=== PATIENT | female | born 1960 | race Caucasian/White ===

== ENCOUNTER 2016-06-01 15:39 | Outpatient (CLI) | payer OTHER | END 2016-06-01 15:40 | disposition home or self-care (01) | DX: J44.9 Chronic obstructive pulmonary disease, unspecified (principal) ==

== ENCOUNTER 2016-06-28 09:04 | Outpatient (CLI) | payer OTHER | END 2016-06-28 09:05 | disposition home or self-care (01) | DX: E55.9 Vitamin D deficiency, unspecified (principal); E78.5 Hyperlipidemia, unspecified ==

== ENCOUNTER 2016-09-20 13:13 | Outpatient (CLI) | payer OTHER ==
--- NOTE | 2016-09-21 16:11 | DEXA Report ---
DEXA: 09/20/2016 CLINICAL INDICATION: Postmenopausal. TECHNIQUE: Dual energy x-ray absorptiometry (DXA) was performed on a [employer] system. Regions measured are the AP spine, femoral neck, and, if needed, forearm. COMPARISON: None. In accordance with the International Society for Clinical Densitometry (ISCD) guidelines, data from previous exams may be reanalyzed using current recommendations and techniques. This is done to allow a more accurate basis for comparison with the current study. FINDINGS: The data for the lumbar spine is as follows: REGION BMD (g/cm/cm) T-SCORE Z-SCORE L1 0.784 -2.9 -1.5 L2 0.932 -2.2 -0.8 L3 0.938 -2.2 -0.8 L4 0.939 -2.2 -0.8 TOTAL 0.905 -2.3 -0.9 NOTE: All evaluable vertebrae are used for classification. The data for the hip is as follows: REGION BMD (g/cm/cm) T-SCORE Z-SCORE Neck 0.694 -2.5 -1.1 TOTAL 0.694 -2.5 -1.4 NOTE: The femoral neck or total proximal femur, whichever is lowest, is used for classification. * Denotes significant change at the 95% confidence level. Denotes dissimilar scan types or analysis methods. IMPRESSION: THE WHO CLASSIFICATION BASED ON THE INTERNATIONAL REFERENCE STANDARD IS OSTEOPOROSIS. THE FRACTURE RISK IS HIGH. RECOMMENDATION: Patients with diagnosis of osteoporosis or osteopenia should have regular bone mineral density assessment. For those eligible for Medicare, routine testing is allowed once every 2 years. Testing frequency can be increased for patients who have rapidly progressing disease or for those who are receiving medical therapy to restore bone mass. COMMENT: World Health Organization (WHO) definitions for osteoporosis and osteopenia: NORMAL BMD: T-score at -1.0 or higher, fracture risk is low. OSTEOPENIA BMD: T-score between -1.0 and -2.5, fracture risk is increased. OSTEOPOROSIS BMD: T-score at -2.5 or lower, fracture risk high. National Osteoporosis Foundation recommends: 1. Obtain adequate dietary calcium (at least 1200 mg per day) and vitamin D (400 -800 international units per day). 2. Participate, as appropriate, in regular weightbearing and muscle- strengthening exercise. 3. Avoid tobacco use and reduce alcohol and caffeine intake. 4. For more detailed information see the website at www.NOF.org. MTDD
== END 2016-09-20 13:14 | disposition home or self-care (01) ==
LOC: DI 13:13
PROVIDERS: ATTEND Physician Assistant
DX: Z00.00 Encounter for general adult medical examination without abnormal findings (principal); M81.0 Age-related osteoporosis without current pathological fracture; N95.9 Unspecified menopausal and perimenopausal disorder
CPT/HCPCS: 77080

== ENCOUNTER 2017-05-31 08:00 | Outpatient (CLI) | payer OTHER | END 2017-05-31 08:01 | disposition home or self-care (01) | LOC: LAB.F 08:00 | PROVIDERS: ATTEND Physician Assistant | DX: M81.0 Age-related osteoporosis without current pathological fracture (principal); E55.9 Vitamin D deficiency, unspecified | CPT/HCPCS: 36415; 82306 ==

== ENCOUNTER 2021-10-20 20:53 | Inpatient (IN) | payer MEDICARE, OTHER ==
[2021-10-20 21:45] LABS: VBG BASE EXCESS 4.4 mmol/L (-2 - +2); VBG HCO3 30.7 mmol/L (23-28); VBG OXYGEN SATURATION 79.7 % (60-80); VBG PCO2 51.6 mmHg (41-51); VBG PH 7.392 (7.31-7.41); VBG TOTAL CO2 32.3 mmol/L (24-29)
--- NOTE | 2021-10-20 21:46 | ED Physician Documentation ---
PD HPI DYSPNEA - Stated complaint Stated Complaint: SOA/COPD+ - Chief complaint Chief Complaint: Resp - History obtained from History obtained from: Patient - History of Present Illness Timing - onset: How many days ago (2-3 days) Timing - details: Gradual onset Pain level now: 5 Improved by: Rest Worsened by: Exertion Associated symptoms: Cough, Chest pain / discomfort. No: Fever, Hemoptysis, Palpitations, Diaphoresis, Bilateral edema, Unilateral edema Similar symptoms before: Diagnosis (COPD) Recently seen: Not recently seen - Additional information Additional information: patient states "I'm having an exacerbation of my COPD". She says she has severe COPD, initial diagnosis of COPD was 3-4 years ago; she describes recent steady decline, with gradually increasing FISHMAN that, over the past few days, includes dyspnea at rest. She says her quality of life has gradually declined and she says she can no longer ambulate around her house without severe dyspnea. She says she recently went through an albuterol MDI within a few days of filling the rx. She does not use oxygen at home. She does have a electrician outside. She says that she was told she has not yet met criteria for home oxygen. She says she has had previous COPD exacerbations but this is the most dyspneic she has ever felt. She says she previously had responded well to steroids with exacerbations. Her only other [facility] ED visit was in 2016 for unrelated problem (n/v). She also notes anterior chest pain which she suspects is due to coughing Review of Systems Constitutional: reports: Weight Loss (gradual but steady weight loss for several months which she attributes to decreasing lack of mobility (due to FISHMAN)). denies: Fever, Chills, Sweats Nose: reports: Reviewed and negative Cardiac: reports: Chest pain / pressure. denies: Palpitations, Pedal edema, Calf pain Respiratory: reports: Dyspnea, Cough. denies: Hemoptysis, Wheezing GI: reports: Reviewed and negative : denies: Dysuria Musculoskeletal: reports: Reviewed and negative Neurologic: reports: Reviewed and negative Endocrine: reports: Weight loss PD PAST MEDICAL HISTORY - Past Medical History Cardiovascular: None Respiratory: COPD Endocrine/Autoimmune: None GI: None : None HEENT: None Derm: None - Past Surgical History General: Cholecystectomy, Appendectomy /MUSIC MINISTER: Oophrectomy - Present Medications Home Medications: Ambulatory Orders Medication Instructions Recorded Confirmed ondansetron HCL [Zofran] 4 mg PO Q6H PRN #10 tablet 01/19/16 - Allergies Allergies/Adverse Reactions: Allergies Allergy/AdvReac Type Severity Reaction Status Date / Time promethazine HCl * AdvReac Hallucinati Verified 10/20/21 21:02 [From Phenergan] ons - Social History Does the pt smoke?: Yes Smoking Status: Current every day smoker Does the pt drink ETOH?: Yes Does the pt have substance abuse?: Yes - Immunizations Immunizations are current?: Yes PD ED PE NORMAL - Vitals Vital signs reviewed: Yes - General General: Alert and oriented X 3, No acute distress (NAD at rest), Other (cachectic) - HEENT HEENT: Moist mucous membranes - Neck Neck: Supple, no meningeal sign, No JVD - Cardiac Cardiac: No murmur - Respiratory Respiratory: No respiratory distress - Abdomen Abdomen: Soft, Non tender - Derm Derm: Normal color, Warm and dry - Extremities Extremities: No edema PD ED PE EXPANDED - Cardiac Cardiac: Tachy, Regular Rhythm - Respiratory Respiratory: Decreased breath sounds (strikingly distant breath sounds bilaterally). No: Wheezing Results - Vitals Vitals: Vital Signs - 24 hr 10/20/21 10/20/21 10/20/21 20:58 22:00 22:32 Temperature 36.7 C Heart Rate 125 H 99 102 H Respiratory 18 26 H 20 Rate Blood Pressure 125/79 110/77 O2 Saturation 94 94 10/21/21 10/21/21 10/21/21 00:16 01:15 01:36 Temperature Heart Rate 93 130 H 103 H Respiratory 15 36 H 27 H Rate Blood Pressure 100/68 O2 Saturation 92 87 L 10/21/21 10/21/21 10/21/21 01:38 01:47 02:40 Temperature Heart Rate 91 95 91 Respiratory 24 25 H 16 Rate Blood Pressure 123/79 104/75 O2 Saturation 99 89 L 10/21/21 10/21/21 02:46 03:19 Temperature Heart Rate Respiratory 18 Rate Blood Pressure O2 Saturation 92 93 Oxygen O2 Source Nasal cannula Oxygen Flow Rate 2 - EKG (time done) No standard instances Rate: Rate (enter#) (96) Rhythm: NSR [place]: Normal Intervals: Normal IA QRS: Normal Ischemia: Normal ST segments, Q waves (V1,V2) Compare to prior EKG: Old EKG unavailable - Labs Labs: Laboratory Tests 10/20/21 10/20/21 10/20/21 21:39 21:39 21:39 WBC 8.9 RBC 4.82 Hgb 14.8 Hct 45.4 MCV 94.2 MCH 30.7 MCHC 32.6 RDW 13.4 Plt Count 325 MPV 9.2 Neut # (Auto) 6.6 Lymph # (Auto) 1.6 Owen # (Auto) 0.6 Eos # (Auto) 0.1 Baso # (Auto) 0.1 Absolute Nucleated RBC 0.00 Nucleated RBC % 0.0 VBG pH 7.392 VBG pCO2 51.6 H VBG pO2 41.0 VBG HCO3 30.7 H VBG Total CO2 32.3 H VBG O2 Saturation 79.7 VBG Base Excess 4.4 H Sodium 143 Potassium 3.2 L Chloride 100 L Carbon Dioxide 31 Anion Gap 12.0 BUN 21 H Creatinine 0.4 Estimated GFR (MDRD) 163 Glucose 112 H Calcium 10.2 Magnesium 2.1 Troponin I High Sens Nasal Adenovirus (PCR) Nasal B. parapertussis DNA (PCR) Nasal Coronavir 229E PCR Nasal Coronavir HKU1 PCR Nasal Coronavir NL63 PCR Nasal Coronavir OC43 PCR Nasal Enterovir/Rhinovir PCR Nasal Influenza B PCR Nasal Influenza A PCR Nasal Parainfluen 1 PCR Nasal Parainfluen 2 PCR Nasal Parainfluen 3 PCR Nasal Parainfluen 4 PCR Nasal RSV (PCR) Nasal B.pertussis DNA PCR Nasal C.pneumoniae (PCR) Raúl Human Metapneumo PCR Nasal M.pneumoniae (PCR) Nasal SARS-CoV-2 (PCR) 10/20/21 10/20/21 21:39 22:58 WBC RBC Hgb Hct MCV MCH MCHC RDW Plt Count MPV Neut # (Auto) Lymph # (Auto) Owen # (Auto) Eos # (Auto) Baso # (Auto) Absolute Nucleated RBC Nucleated RBC % VBG pH VBG pCO2 VBG pO2 VBG HCO3 VBG Total CO2 VBG O2 Saturation VBG Base Excess Sodium Potassium Chloride Carbon Dioxide Anion Gap BUN Creatinine Estimated GFR (MDRD) Glucose Calcium Magnesium Troponin I High Sens 3.6 Nasal Adenovirus (PCR) NOT DETECTED Nasal B. parapertussis DNA (PCR) NOT DETECTED Nasal Coronavir 229E PCR NOT DETECTED Nasal Coronavir HKU1 PCR NOT DETECTED Nasal Coronavir NL63 PCR NOT DETECTED Nasal Coronavir OC43 PCR NOT DETECTED Nasal Enterovir/Rhinovir PCR NOT DETECTED Nasal Influenza B PCR NOT DETECTED Nasal Influenza A PCR NOT DETECTED Nasal Parainfluen 1 PCR NOT DETECTED Nasal Parainfluen 2 PCR NOT DETECTED Nasal Parainfluen 3 PCR NOT DETECTED Nasal Parainfluen 4 PCR NOT DETECTED Nasal RSV (PCR) NOT DETECTED Nasal B.pertussis DNA PCR NOT DETECTED Nasal C.pneumoniae (PCR) NOT DETECTED Raúl Human Metapneumo PCR NOT DETECTED Nasal M.pneumoniae (PCR) NOT DETECTED Nasal SARS-CoV-2 (PCR) NOT DETECTED - Rads (name of study) chest xray Radiology: Prelim report reviewed, See rad report PD MEDICAL DECISION MAKING - ED course Complexity details: reviewed results, re-evaluated patient, considered differential, d/w patient ED course: no concerning findings on blood tests including normal hs-cTn. CXR is c/w COPD. Also noted is "linear left suprahilar opacity extending to the apex is suggestive of scarring but the differential includes infectious, inflammatory, and neoplastic etiologies" (per radiology reading). She is given a duoneb and 10mg PO decadron. On reevaluation, she reports feeling no different than when she came in although she also says her dyspnea is and has been mostly with exertion. She then ambulates to the ED bathroom which is directly across the borden from her room and this did result in obvious dyspnea and tachypnea; she required assistance just to get back to her room and onto the stretcher. Her heart rate was 130, respiratory rate 36, and room air pulse ox 87%. She was speaking in 1-2 word sentences and appeared very anxious (appropriate to the obvious dyspnea). albuterol 2.5mg neb x 2 ordered and given and she was maintained on 2 liters [place] oxygen. When I reevaluated her, she is 89% pulse ox on 2 liters [place] (at rest), although she is no longer visibly dyspneic. D/W Dr. Jeong, accepts to hospitalist service for COPD exacerbation. Patient says she is considering looking into hospice care, says she is aware of the prognosis and the general progressive nature of COPD. Departure - Departure Disposition: [facility] DC/Xfer Clinical Impression: COPD exacerbation Condition: Stable Discharge Date/Time: 10/21/21 05:16
[2021-10-20 21:52] LABS: BASOPHILS # (AUTO) 0.1 10^3/uL (0.0-0.1); BASOPHILS % (AUTO) 0.6 %; EOSINOPHILS # (AUTO) 0.1 10^3/uL (0.0-0.7); HCT - HEMATOCRIT 45.4 % (37.0-47.0); HGB - HEMOGLOBIN 14.8 g/dL (12.0-16.0); LYMPHOCYTES # (AUTO) 1.6 10^3/uL (1.5-3.5); LYMPHOCYTES % (AUTO) 17.8 %; MEAN CORPUSCULAR HEMOGLOBIN 30.7 pg (27.0-31.0); MEAN CORPUSCULAR HGB CONC 32.6 g/dL (32.0-36.0); MEAN CORPUSCULAR VOLUME 94.2 fL (81.0-99.0); MEAN PLATELET VOLUME 9.2 fL (7.9-10.8); MONOCYTES # (AUTO) 0.6 10^3/uL (0.0-1.0); MONOCYTES % (AUTO) 6.3 %; NEUTROPHILS # (AUTO) 6.6 10^3/uL (1.5-6.6); NEUTROPHILS % (AUTO) 74.1 %; PLT - PLATELET COUNT 325 10^3/uL (130-450); RED BLOOD COUNT 4.82 10^6/uL (4.20-5.40); RED CELL DISTRIBUTION WIDTH 13.4 % (12.0-15.0); WHITE BLOOD COUNT 8.9 x10^3/uL (4.8-10.8)
[2021-10-20 21:54] LABS: CALCIUM 10.2 mg/dL (8.5-10.3); CREATININE 0.4 mg/dL (0.4-1.0); MAGNESIUM 2.1 mg/dL (1.7-2.8); POTASSIUM 3.2 mmol/L (3.5-5.0)
--- NOTE | 2021-10-20 22:01 | XRAY Report ---
PROCEDURE: Chest 1 View X-Ray INDICATIONS: dyspnea TECHNIQUE: One view of the chest was acquired. COMPARISON: 06/01/2016. FINDINGS: Surgical changes and devices: None. Lungs and pleura: There is hyperinflation of the lungs with flattening of the hemidiaphragms compati ble with COPD. Linear left suprahilar opacity with indistinct margins extending to the apex is new co mpared to the prior study and is suggestive of scarring. No pleural effusions or pneumothorax. Mediastinum: Mediastinal contours appear normal. Heart size is normal. Bones and chest wall: No suspicious bony lesions. Overlying soft tissues appear unremarkable. IMPRESSION: 1. Findings consistent with COPD redemonstrated. 2. Linear left suprahilar opacity extending to the apex is suggestive of scarring but the differentia l includes infectious, inflammatory, and neoplastic etiologies. Recommend a short-term follow-up to d emonstrate resolution or further evaluation with CT. Reviewed by: Reginald Coker MD on 10/20/2021 10:00 PM PDT Approved by: Reginald Coker MD on 10/20/2021 10:00 PM PDT Station ID: [id number]
[2021-10-20] MEDS ORDERED: IPRATROPIUM/ALBUTEROL 3 ML NEB INH STA (22:15)
[2021-10-20] MEDS ORDERED: CHERRY SYRUP 10 ML UDC PO ONE (22:15)
[2021-10-20] MEDS ORDERED: DEXAMETHASONE 10 MG/ML VIAL PO STA (22:15)
[2021-10-20 23:52] LABS: B. PARAPERTUSSIS- RESP PCR PAN NOT DETECTED; B. PERTUSSIS- RESP PCR PANEL NOT DETECTED; C. PNEUMONIAE- RESP PCR PANEL NOT DETECTED; CORONAVIRUS 229E-RESP PCR NOT DETECTED; CORONAVIRUS HKU1-RESP PCR NOT DETECTED; CORONAVIRUS NL63-RESP PCR NOT DETECTED; CORONAVIRUS OC43-RESP PCR NOT DETECTED; HUMAN METAPNEUMOVIRUS NOT DETECTED; INFLUENZA A- RESP PCR PANEL NOT DETECTED; INFLUENZA B - RESP PCR PANEL NOT DETECTED; M. PNEUMONIAE- RESP PCR PANEL NOT DETECTED; PARAINFLUENZA VIRUS 1 NOT DETECTED; PARAINFLUENZA VIRUS 2 NOT DETECTED; PARAINFLUENZA VIRUS 3 NOT DETECTED; PARAINFLUENZA VIRUS 4 NOT DETECTED; RHINOVIRUS/ENTEROVIRUS NOT DETECTED; RSV- RESP PCR PANEL NOT DETECTED; SARS-CoV-2 -RESP PCR PANEL NOT DETECTED
[2021-10-21] MEDS ORDERED: ALBUTEROL NEB 2.5 MG/3 ML INH STA ×2 (01:17→01:31)
[2021-10-21] MEDS ORDERED: ACETAMINOPHEN 325 MG TABLET PO PRN (04:33)
[2021-10-21] MEDS ORDERED: IPRATROPIUM/ALBUTEROL 3 ML NEB INH PRN (04:37)
--- NOTE | 2021-10-21 04:45 | HISTORY & PHYSICAL EXAMINATION ---
Chief Complaint - Chief Complaint Chief Complaint: SOB History of Present Illness - Admitted From Admitted From:: ED - History Obtained From History obtained from: ED provider and the patient - History of Present Illness HPI Comment/Other: This is a 60-year-old white female, current smoker, with COPD who is not on home oxygen. She presented to the ED with several days of shortness of breath. Today her shortness of breath had worsened and therefore she presented to the ER where she was found to have wheezing and O2 saturation of 87% on room air. She has received p.o. Decadron, albuterol and DuoNeb inhalers and continues to feel short of breath, is tachypneic and is wheezing. Her Covid test is neg. The ED provider reached out to the Hospitalist team for having her admitted for a COPD exacerbation with hypoxia. 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 The patient drinks alcohol daily. - Substance History Dependence: Experiences withdrawal or developed tolerances: Tobacco Tobacco Details: Cigarettes Meds/Allgy - Home Medications Home Medications: Ambulatory Orders Medication Instructions Recorded Confirmed Albuterol Sulfate [Proair Hfa 1 - 2 puffs INH Q4H PRN 10/21/21 10/21/21 Inhaler] Azithromycin [Zithromax] 250 mg PO Q48H 10/21/21 10/21/21 Fluticasone Propion/Salmeterol 1 each IH BID 10/21/21 10/21/21 [Wixela 500-50 Inhub] Tiotropium [place] [Spiriva 2.5 mcg IH DAILY 10/21/21 10/21/21 Respimat] - Allergies Allergies/Adverse Reactions: Allergies Allergy/AdvReac Type Severity Reaction Status Date / Time promethazine HCl * AdvReac Hallucinati Verified 10/20/21 21:02 [From Phenergan] ons Review of Systems - Constitutional Constitutional: reports: Poor appetite (Cachexia (BMI is 12)) - Respiratory Respiratory: reports: Cough, SOB at rest, SOB with exertion - All Other Systems All Other Systems: reports: Reviewed and negative Exam - Vital Signs Vital Signs: Vital Signs x48h Temp Pulse Resp BP Pulse Ox 10/21/21 03:19 18 93 10/21/21 02:46 92 10/21/21 02:40 91 16 104/75 89 L 10/21/21 01:47 95 25 H 10/21/21 01:38 91 24 123/79 99 10/21/21 01:36 103 H 27 H 10/21/21 01:15 130 H 36 H 87 L 10/21/21 00:16 93 15 100/68 92 10/20/21 22:32 102 H 20 10/20/21 22:00 99 26 H 110/77 94 10/20/21 20:58 36.7 C 125 H 18 125/79 94 - Physical Exam General Appearance: positive: Mild distress (respiratory, is tachypneic, pursed lip breathing), Other (thin, has her own teeth in poor yellow condition) Eyes Bilateral: positive: Normal inspection ENT: positive: ENT inspection nml, Other (wearing O2 via n.c.) Neck: positive: Nml inspection, Trachea midline Respiratory: positive: Other (Poor air movement, scattered wheezes, no ralrs) Cardiovascular: positive: Regular rate & rhythm, No murmur Abdomen: positive: Non-tender, No distention Skin: positive: Warm, Dry Extremities: positive: Non-tender, No pedal edema Neurologic/Psychiatric: positive: Oriented x3 (Non-focal) Conclusion/Plan - Problem List (1) Acute respiratory failure with hypoxia Conclusion/Plan: Her saturations reached 87% on room air, measured in the ED. The etiology is her COPD exacerbation. Will give supplemental oxygen. Will treat the under lying COPD exacerbaytion (2) COPD exacerbation Conclusion/Plan: Will begin the patient on scheduled and as needed bronchodilators via nebulizer, nebulized stertoids and IV steroids, Mucinex and Singulair oral. (3) Tobacco use Conclusion/Plan: A nicotine patch will be ordered for nicotine urges. Smoking cessation is advised (4) Abnormal EKG Conclusion/Plan: The patient's EKG shows a vertical axis and right atrial enlargement, both consistent with right heart overload, which is likely from her COPD. (5) Renal azotemia Conclusion/Plan: We will give the patient gentle iv hydration with potassium (6) Cachexia Conclusion/Plan: Her BMI is 12. A nutrition consult will be ordered to evaluate for malnutrition and give recommendations. - Lab Results Fish Bones: 10/21/21 05:45 10/21/21 05:45 - Diagnostic Imaging Results Diagnostic Imaging Results: positive: Final report reviewed - Other Other Results/Comments: Attestation: The patient is expected to be discharged or transferred to another facility within 96 hours: Yes.
[2021-10-21] MEDS: methylPREDNISolone SUCCINATE 40 MG/ML VIAL IVP SCH ×3 (05:50→22:22)
[2021-10-21] MEDS: SODIUM CHLORIDE FLUSH 0.9% 10 ML SYRINGE IVP PRN ×2 (05:50→13:28)
[2021-10-21 05:52] LABS: BASOPHILS % (AUTO) 0.2 %; HCT - HEMATOCRIT 41.8 % (37.0-47.0); HGB - HEMOGLOBIN 13.9 g/dL (12.0-16.0); LYMPHOCYTES # (AUTO) 0.4 10^3/uL (1.5-3.5); MEAN CORPUSCULAR HEMOGLOBIN 31.1 pg (27.0-31.0); MEAN CORPUSCULAR HGB CONC 33.3 g/dL (32.0-36.0); MEAN CORPUSCULAR VOLUME 93.5 fL (81.0-99.0); MEAN PLATELET VOLUME 9.3 fL (7.9-10.8); MONOCYTES # (AUTO) 0.1 10^3/uL (0.0-1.0); MONOCYTES % (AUTO) 1.1 %; NEUTROPHILS # (AUTO) 5.1 10^3/uL (1.5-6.6); NEUTROPHILS % (AUTO) 91.5 %; PLT - PLATELET COUNT 274 10^3/uL (130-450); RED BLOOD COUNT 4.47 10^6/uL (4.20-5.40); RED CELL DISTRIBUTION WIDTH 13.4 % (12.0-15.0); WHITE BLOOD COUNT 5.6 x10^3/uL (4.8-10.8)
[2021-10-21 06:05] LABS: CALCIUM 9.3 mg/dL (8.5-10.3); CREATININE 0.4 mg/dL (0.4-1.0); PHOSPHORUS 3.9 mg/dL (2.5-4.6); POTASSIUM 3.9 mmol/L (3.5-5.0)
[2021-10-21] MEDS: D5NS W/20 MEQ KCL 1,000 ML IV SCH ×2 (06:35→22:26)
[2021-10-21] MEDS: ENOXAPARIN 40 MG/0.4 ML SYRINGE SUBQ SCH (07:59)
[2021-10-21] MEDS: guaiFENesin 600 MG TABLET PO SCH ×2 (07:59→22:22)
[2021-10-21] MEDS: SODIUM CHLORIDE FLUSH 0.9% 10 ML SYRINGE IVP SCH ×2 (08:02→22:22)
[2021-10-21] MEDS: NICOTINE 14 MG PATCH TOP PRN (08:15)
[2021-10-21] MEDS ORDERED: MULTIVITAMIN W/MINERALS TABLET PO SCH (10:00)
[2021-10-21] MEDS: IPRATROPIUM/ALBUTEROL 3 ML NEB INH SCH ×4 (10:58→20:35)
[2021-10-21] MEDS: BUDESONIDE 0.5 MG/2 ML NEB INH SCH ×3 (10:58→20:35)
[2021-10-21] MEDS: LORazepam 0.5 MG TABLET PO PRN (13:28)
--- NOTE | 2021-10-21 15:17 | PHARMACY PROGRESS NOTE ---
- Best Possible Medication History Admit Date and Time: 10/21/21 0433 Processed by: Pharmacy Medication History completed: Yes Patient Interview: Completed Secondary Source(s): Insurance records As the person ultimately responsible for medication therapy, providers are able to order a medication from an existing home medication list in [facility] via the "Reconcile Routine" prior to Confirmation of that medication by contracting support specialist. Such practice is discouraged except when the physician, in their clinical judgment, deems that a medical need exists for a medication without regard to previous use.
[2021-10-21] MEDS ORDERED: LORazepam 2 MG/ML VIAL IVP PRN (19:42)
[2021-10-21] MEDS: MONTELUKAST 10 MG TABLET PO SCH (22:22)
[2021-10-22] MEDS: SODIUM CHLORIDE FLUSH 0.9% 10 ML SYRINGE IVP SCH ×4 (01:08→23:33)
[2021-10-22] MEDS: methylPREDNISolone SUCCINATE 40 MG/ML VIAL IVP SCH ×3 (05:14→23:34)
[2021-10-22 06:09] LABS: INR 1.1 (0.8-1.2); PT - PROTHROMBIN TIME 12.7 secs (9.9-12.6)
[2021-10-22 06:10] LABS: BASOPHILS % (AUTO) 0.2 %; EOSINOPHILS # (AUTO) 0.1 10^3/uL (0.0-0.7); EOSINOPHILS % (AUTO) 0.7 %; HCT - HEMATOCRIT 43.2 % (37.0-47.0); HGB - HEMOGLOBIN 13.9 g/dL (12.0-16.0); LYMPHOCYTES # (AUTO) 2.2 10^3/uL (1.5-3.5); LYMPHOCYTES % (AUTO) 20.9 %; MEAN CORPUSCULAR HEMOGLOBIN 30.8 pg (27.0-31.0); MEAN CORPUSCULAR HGB CONC 32.2 g/dL (32.0-36.0); MEAN CORPUSCULAR VOLUME 95.8 fL (81.0-99.0); MEAN PLATELET VOLUME 9.5 fL (7.9-10.8); MONOCYTES # (AUTO) 0.9 10^3/uL (0.0-1.0); MONOCYTES % (AUTO) 8.5 %; NEUTROPHILS # (AUTO) 7.2 10^3/uL (1.5-6.6); NEUTROPHILS % (AUTO) 69.5 %; PLT - PLATELET COUNT 283 10^3/uL (130-450); RED BLOOD COUNT 4.51 10^6/uL (4.20-5.40); RED CELL DISTRIBUTION WIDTH 13.5 % (12.0-15.0); WHITE BLOOD COUNT 10.3 x10^3/uL (4.8-10.8)
[2021-10-22 06:22] LABS: CALCIUM 9.1 mg/dL (8.5-10.3); CREATININE 0.4 mg/dL (0.4-1.0); POTASSIUM 4.6 mmol/L (3.5-5.0)
[2021-10-22] MEDS: LORazepam 0.5 MG TABLET PO PRN ×2 (07:10→08:09)
[2021-10-22] MEDS: IPRATROPIUM/ALBUTEROL 3 ML NEB INH SCH ×4 (07:53→21:22)
[2021-10-22] MEDS: BUDESONIDE 0.5 MG/2 ML NEB INH SCH ×2 (07:53→21:22)
[2021-10-22] MEDS: polyethylene glycoL 3350 17 GM PACKET PO SCH (08:08)
[2021-10-22] MEDS: guaiFENesin 600 MG TABLET PO SCH ×2 (08:09→23:33)
[2021-10-22] MEDS: PRENATAL VITAMIN TABLET PO SCH (08:09)
[2021-10-22] MEDS: ENOXAPARIN 40 MG/0.4 ML SYRINGE SUBQ SCH (08:09)
[2021-10-22] MEDS: THIAMINE 100 MG TABLET PO SCH (08:09)
[2021-10-22] MEDS ORDERED: LORazepam 0.5 MG TABLET PO PRN (10:19)
--- NOTE | 2021-10-22 10:21 | PROVIDER PROGRESS NOTE ---
Assessment/Plan - Problem List (1) Acute respiratory failure with hypoxia Assessment/Plan: 2/2 COPD exacerbation On solumedrol 40mg IV tid Singular, Duoneb q6hrs scheduled and prn On supplemental oxygen. 2L via nasal canal. (2) COPD exacerbation Assessment/Plan: On solumedrol 40mg IV tid Singular, Duoneb q6hrs scheduled and prn On supplemental oxygen. 2L via nasal canal. (3) Cachexia Assessment/Plan: Likely 2/2 COPD Nutrition following (4) Tobacco use Assessment/Plan: Nicotine patch (5) Depression with anxiety Assessment/Plan: Celexa 20mg po daily Ativan 1mg q8hr prn - Current Meds Current Meds: Current Medications Generic Name Dose Route Start Last Admin Trade Name Freq PRN Reason Stop Dose Admin Albuterol/Ipratropium 3 ml 10/21/21 07:00 10/22/21 07:53 Ipratropium/Albuterol 3 Ml Neb INH Not Given RTQID LAUREN Budesonide 0.5 mg 10/21/21 07:00 10/22/21 07:53 Budesonide 0.5 Mg/2 Ml Neb INH Not Given RTBID LAUREN Enoxaparin Sodium 40 mg 10/21/21 09:00 10/22/21 08:09 Enoxaparin 40 Mg/0.4 Ml Syringe SUBQ 40 mg DAILY LAUREN Administration Guaifenesin 600 mg 10/21/21 09:00 10/22/21 08:09 Guaifenesin 600 Mg Tablet PO 600 mg BID LAUREN Administration Potassium Chloride/Dextrose/Sod Cl 1,000 mls @ 60 mls/hr 10/21/21 05:00 10/21/21 22:26 D5ns W/20 Meq Kcl IV 60 mls/hr .[id number] LAUREN Administration Methylprednisolone 40 mg 10/21/21 06:00 10/22/21 05:14 Methylprednisolone Succinate 40 Mg/Ml Vial IVP 40 mg TID LAUREN Administration Montelukast Sodium 10 mg 10/21/21 21:00 10/21/21 22:22 Montelukast 10 Mg Tablet PO 10 mg QPM LAUREN Administration Nicotine 1 patch 10/21/21 04:38 10/21/21 08:15 Nicotine 14 Mg Patch TOP 1 patch DAILY PRN Administration Nicotine Craving Polyethylene Glycol 17 gm 10/22/21 09:00 10/22/21 08:08 Polyethylene Glycol 3350 17 Gm Packet PO 17 gm DAILY LAUREN Administration Multivit/Folic Acid/Iron 1 tab 10/22/21 09:00 10/22/21 08:09 Vitamin Tablet PO 1 tab DAILY LAUREN Administration Sodium Chloride 10 ml 10/21/21 04:33 10/21/21 13:28 Sodium Chloride Flush 0.9% 10 Ml Syringe IVP 10 ml PRN PRN Administration NEEDED PER PROVIDER ORDERS Sodium Chloride 10 ml 10/21/21 09:00 10/22/21 08:09 Sodium Chloride Flush 0.9% 10 Ml Syringe IVP Not Given 0100,0900,1700 LAUREN Thiamine HCl 100 mg 10/22/21 09:00 10/22/21 08:09 Thiamine 100 Mg Tablet PO 100 mg DAILY LAUREN Administration - Lab Result Fish Bone Diagrams: 10/23/21 04:30 10/23/21 04:30 - Additional Planning My Orders: My Active Orders 10/21/21 Lunch Regular Diet [DIET] 10/22/21 10:19 LORazepam [Ativan] 1 mg PO Q8H PRN Subjective - Subjective Patient Reports: Other (She was very somnolent today. When woken she was very tearful. Reported feeling depressed. Respiratory status is much improved.) Objective Vital Signs: Vital Signs - 24 hr 10/21/21 10/21/21 10/21/21 11:54 12:08 15:14 Temperature 36.8 C Heart Rate 88 84 Heart Rate [ 103 H Brachial] Respiratory 16 18 16 Rate Blood Pressure [Left Brachial artery] Blood Pressure 122/77 [Right Brachial artery] O2 Saturation 95 10/21/21 10/21/21 10/21/21 15:53 20:11 20:36 Temperature 36.9 C 37.0 C Heart Rate 76 Heart Rate [ 94 100 Brachial] Respiratory 24 24 19 Rate Blood Pressure [Left Brachial artery] Blood Pressure 116/81 H 122/77 [Right Brachial artery] O2 Saturation 95 96 10/22/21 10/22/21 10/22/21 00:11 05:00 07:33 Temperature 36.6 C 36.7 C 36.9 C Heart Rate Heart Rate [ 98 76 83 Brachial] Respiratory 16 16 21 Rate Blood Pressure 114/71 [Left Brachial artery] Blood Pressure 109/73 139/96 H [Right Brachial artery] O2 Saturation 95 98 96 Oxygen O2 Source Room air Oxygen Flow Rate 2 I&O (Last 24 Hrs): Intake and Output Totals x24h 10/20/21 10/21/21 10/22/21 23:59 23:59 23:59 Intake Total 2515 200 Output Total 750 350 Balance 1765 -150 General: Oriented x3, No acute distress, Other (somnolent, tearful) HEENT: PERRLA, EOMI Neck: Supple, No JVD Neuro: Non Focal, Oriented Times 3 Cardiovascular: Regular rate Respiratory: Other (diminished breath sounds) Abdomen: Normal bowel sounds, Soft, No tenderness Extremities: No clubbing, No edema Skin: No rashes, No breakdown, No significant lesion - Results Results: Laboratory Results WBC 10.3 x10^3/uL (4.8-10.8) 10/22/21 05:53 RBC 4.51 10^6/uL (4.20-5.40) 10/22/21 05:53 Hgb 13.9 g/dL (12.0-16.0) 10/22/21 05:53 Hct 43.2 % (37.0-47.0) 10/22/21 05:53 MCV 95.8 fL (81.0-99.0) 10/22/21 05:53 MCH 30.8 pg (27.0-31.0) 10/22/21 05:53 MCHC 32.2 g/dL (32.0-36.0) 10/22/21 05:53 RDW 13.5 % (12.0-15.0) 10/22/21 05:53 Plt Count 283 10^3/uL (130-450) 10/22/21 05:53 MPV 9.5 fL (7.9-10.8) 10/22/21 05:53 Neut # (Auto) 7.2 10^3/uL (1.5-6.6) H 10/22/21 05:53 Lymph # (Auto) 2.2 10^3/uL (1.5-3.5) 10/22/21 05:53 [place] # (Auto) 0.9 10^3/uL (0.0-1.0) 10/22/21 05:53 Eos # (Auto) 0.1 10^3/uL (0.0-0.7) 10/22/21 05:53 Baso # (Auto) 0.0 10^3/uL (0.0-0.1) 10/22/21 05:53 Absolute Nucleated RBC 0.00 x10^3/uL 10/22/21 05:53 Nucleated RBC % 0.0 /100WBC 10/22/21 05:53 PT 12.7 secs (9.9-12.6) H 10/22/21 05:53 INR 1.1 (0.8-1.2) 10/22/21 05:53 VBG pH 7.392 (7.31-7.41) 10/20/21 21:39 VBG pCO2 51.6 mmHg (41-51) H 10/20/21 21:39 VBG pO2 41.0 mmHg (25-47) 10/20/21 21:39 VBG HCO3 30.7 mmol/L (23-28) H 10/20/21 21:39 VBG Total CO2 32.3 mmol/L (24-29) H 10/20/21 21:39 VBG O2 Saturation 79.7 % (60-80) 10/20/21 21:39 VBG Base Excess 4.4 mmol/L (-2 - +2) H 10/20/21 21:39 Sodium 137 mmol/L (135-145) 10/22/21 05:53 Potassium 4.6 mmol/L (3.5-5.0) 10/22/21 05:53 Chloride 102 mmol/L (101-111) 10/22/21 05:53 Carbon Dioxide 27 mmol/L (21-32) 10/22/21 05:53 Anion Gap 8.0 (6-13) 10/22/21 05:53 BUN 13 mg/dL (6-20) 10/22/21 05:53 Creatinine 0.4 mg/dL (0.4-1.0) 10/22/21 05:53 Estimated GFR (MDRD) 163 (>89) 10/22/21 05:53 Glucose 98 mg/dL (70-100) 10/22/21 05:53 Calcium 9.1 mg/dL (8.5-10.3) 10/22/21 05:53 Phosphorus 3.9 mg/dL (2.5-4.6) 10/21/21 05:45 Magnesium 2.0 mg/dL (1.7-2.8) 10/21/21 05:45 Troponin I High Sens 3.6 ng/L (2.3-14.8) 10/20/21 21:39 Nasal Adenovirus (PCR) NOT DETECTED 10/20/21 22:58 Nasal B. parapertussis DNA (PCR) NOT DETECTED 10/20/21 22:58 Nasal Coronavir 229E PCR NOT DETECTED 10/20/21 22:58 Nasal Coronavir HKU1 PCR NOT DETECTED 10/20/21 22:58 Nasal Coronavir NL63 PCR NOT DETECTED 10/20/21 22:58 Nasal Coronavir OC43 PCR NOT DETECTED 10/20/21 22:58 Nasal Enterovir/Rhinovir PCR NOT DETECTED 10/20/21 22:58 Nasal Influenza B PCR NOT DETECTED 10/20/21 22:58 Nasal Influenza A PCR NOT DETECTED 10/20/21 22:58 Nasal Parainfluen 1 PCR NOT DETECTED 10/20/21 22:58 Nasal Parainfluen 2 PCR NOT DETECTED 10/20/21 22:58 Nasal Parainfluen 3 PCR NOT DETECTED 10/20/21 22:58 Nasal Parainfluen 4 PCR NOT DETECTED 10/20/21 22:58 Nasal RSV (PCR) NOT DETECTED 10/20/21 22:58 Nasal B.pertussis DNA PCR NOT DETECTED 10/20/21 22:58 Nasal C.pneumoniae (PCR) NOT DETECTED 10/20/21 22:58 Raúl Human Metapneumo PCR NOT DETECTED 10/20/21 22:58 Nasal M.pneumoniae (PCR) NOT DETECTED 10/20/21 22:58 Nasal SARS-CoV-2 (PCR) NOT DETECTED 10/20/21 22:58 - Procedures Procedures: Procedures ENDOSC POLYPECTOMY OF LG INTEST (01/02/14) ABX Reporting Has patient been on IV antibiotics over the past 48 hours?: No
[2021-10-22] MEDS: D5NS W/20 MEQ KCL 1,000 ML IV SCH (13:33)
[2021-10-22] MEDS: CITALOPRAM HYDROBROMIDE 20 MG TABLET PO SCH (13:33)
[2021-10-22] MEDS ORDERED: WATER FOR INJECTION,STERILE 10 ML MC ONE (13:39)
[2021-10-22] MEDS: KETOROLAC 15 MG/ML VIAL IVP PRN ×2 (16:40→23:33)
[2021-10-22] MEDS: MONTELUKAST 10 MG TABLET PO SCH (23:33)
[2021-10-23 05:18] LABS: BASOPHILS % (AUTO) 0.2 %; HGB - HEMOGLOBIN 14.6 g/dL (12.0-16.0); LYMPHOCYTES # (AUTO) 1.2 10^3/uL (1.5-3.5); LYMPHOCYTES % (AUTO) 9.1 %; MEAN CORPUSCULAR HEMOGLOBIN 30.4 pg (27.0-31.0); MEAN CORPUSCULAR HGB CONC 33.2 g/dL (32.0-36.0); MEAN CORPUSCULAR VOLUME 91.7 fL (81.0-99.0); MEAN PLATELET VOLUME 9.6 fL (7.9-10.8); MONOCYTES # (AUTO) 0.6 10^3/uL (0.0-1.0); MONOCYTES % (AUTO) 4.5 %; NEUTROPHILS # (AUTO) 11.2 10^3/uL (1.5-6.6); NEUTROPHILS % (AUTO) 85.8 %; PLT - PLATELET COUNT 337 10^3/uL (130-450); RED CELL DISTRIBUTION WIDTH 13.2 % (12.0-15.0)
[2021-10-23 05:32] LABS: CALCIUM 9.4 mg/dL (8.5-10.3); CREATININE 0.3 mg/dL (0.4-1.0); POTASSIUM 4.4 mmol/L (3.5-5.0)
[2021-10-23] MEDS: D5NS W/20 MEQ KCL 1,000 ML IV SCH ×2 (06:07→23:34)
[2021-10-23] MEDS: methylPREDNISolone SUCCINATE 40 MG/ML VIAL IVP SCH ×3 (06:07→22:08)
[2021-10-23] MEDS: SODIUM CHLORIDE FLUSH 0.9% 10 ML SYRINGE IVP PRN (06:08)
--- NOTE | 2021-10-23 07:45 | PROVIDER PROGRESS NOTE ---
Assessment/Plan - Problem List (1) Acute respiratory failure with hypoxia Assessment/Plan: 2/2 COPD exacerbation On solumedrol 40mg IV tid Singular, Duoneb q6hrs scheduled and prn On supplemental oxygen. 2L via nasal canal. (2) COPD exacerbation Assessment/Plan: On solumedrol 40mg IV tid Singular, Duoneb q6hrs scheduled and prn On supplemental oxygen. 2L via nasal canal. (3) Cachexia Assessment/Plan: Likely 2/2 COPD Nutrition following (4) Depression with anxiety Assessment/Plan: Celexa 20mg po daily Ativan discontinued due to somnolence (5) Tobacco use Assessment/Plan: Nicotine patch - Current Meds Current Meds: Current Medications Generic Name Dose Route Start Last Admin Trade Name Freq PRN Reason Stop Dose Admin Albuterol/Ipratropium 3 ml 10/21/21 07:00 10/22/21 21:22 Ipratropium/Albuterol 3 Ml Neb INH Not Given RTQID LAUREN Budesonide 0.5 mg 10/21/21 07:00 10/22/21 21:22 Budesonide 0.5 Mg/2 Ml Neb INH Not Given RTBID LAUREN Citalopram Hydrobromide 20 mg 10/22/21 13:00 10/22/21 13:33 Citalopram Hydrobromide 20 Mg Tablet PO 20 mg DAILY LAUREN Administration Enoxaparin Sodium 40 mg 10/21/21 09:00 10/22/21 08:09 Enoxaparin 40 Mg/0.4 Ml Syringe SUBQ 40 mg DAILY LAUREN Administration Guaifenesin 600 mg 10/21/21 09:00 10/22/21 23:33 Guaifenesin 600 Mg Tablet PO 600 mg BID LAUREN Administration Potassium Chloride/Dextrose/Sod Cl 1,000 mls @ 60 mls/hr 10/21/21 05:00 10/23/21 06:07 D5ns W/20 Meq Kcl IV 60 mls/hr .[id number] LAUREN Administration Ketorolac Tromethamine 15 mg 10/22/21 12:34 10/22/21 23:33 Ketorolac 15 Mg/Ml Vial IVP 10/27/21 12:33 15 mg Q6HR PRN Administration PAIN Lorazepam 1 mg 10/22/21 10:19 10/23/21 00:46 Lorazepam 0.5 Mg Tablet PO 1 mg Q8H PRN Administration Anxiety Methylprednisolone 40 mg 10/21/21 06:00 10/23/21 06:07 Methylprednisolone Succinate 40 Mg/Ml Vial IVP 40 mg TID LAUREN Administration Montelukast Sodium 10 mg 10/21/21 21:00 10/22/21 23:33 Montelukast 10 Mg Tablet PO 10 mg QPM LAUREN Administration Nicotine 1 patch 10/21/21 04:38 10/21/21 08:15 Nicotine 14 Mg Patch TOP 1 patch DAILY PRN Administration Nicotine Craving Polyethylene Glycol 17 gm 10/22/21 09:00 10/22/21 08:08 Polyethylene Glycol 3350 17 Gm Packet PO 17 gm DAILY LAUREN Administration Multivit/Folic Acid/Iron 1 tab 10/22/21 09:00 10/22/21 08:09 Vitamin Tablet PO 1 tab DAILY LAUREN Administration Sodium Chloride 10 ml 10/21/21 04:33 10/23/21 06:08 Sodium Chloride Flush 0.9% 10 Ml Syringe IVP 10 ml PRN PRN Administration NEEDED PER PROVIDER ORDERS Sodium Chloride 10 ml 10/21/21 09:00 10/22/21 23:33 Sodium Chloride Flush 0.9% 10 Ml Syringe IVP 10 ml 0100,0900,1700 LAUREN Administration Thiamine HCl 100 mg 10/22/21 09:00 10/22/21 08:09 Thiamine 100 Mg Tablet PO 100 mg DAILY LAUREN Administration - Lab Result Fish Bone Diagrams: 10/23/21 04:30 10/23/21 04:30 - Additional Planning My Orders: My Active Orders 10/22/21 10:19 LORazepam [Ativan] 1 mg PO Q8H PRN 10/22/21 12:34 Ketorolac Inj (15Mg) [Toradol Inj (15Mg)] 15 mg IVP Q6HR PRN 10/22/21 13:00 Citalopram Hydrobromide [Celexa] 20 mg PO DAILY Subjective - Subjective Patient Reports: Other (Patient was somnolent this morning. Appeared to be breathing better today. Complained of left side/torso. Improved aeration of lungs on auscultation.) Objective Vital Signs: Vital Signs - 24 hr 10/22/21 10/22/21 10/22/21 11:38 16:34 20:10 Temperature 36.8 C 36.8 C Heart Rate 80 Heart Rate [ 80 77 Brachial] Respiratory 19 22 18 Rate Blood Pressure [Left Brachial artery] Blood Pressure 126/60 138/84 H [Right Brachial artery] O2 Saturation 95 93 10/22/21 10/22/21 10/23/21 20:49 23:35 04:34 Temperature 37.0 C 37.0 C 36.4 C L Heart Rate Heart Rate [ 80 74 84 Brachial] Respiratory 18 18 20 Rate Blood Pressure 131/93 H [Left Brachial artery] Blood Pressure 142/84 H 131/79 H [Right Brachial artery] O2 Saturation 93 94 93 10/23/21 07:23 Temperature 36.9 C Heart Rate Heart Rate [ 84 Brachial] Respiratory 20 Rate Blood Pressure [Left Brachial artery] Blood Pressure 126/83 H [Right Brachial artery] O2 Saturation 90 L Oxygen O2 Source Room air Oxygen Flow Rate 2 I&O (Last 24 Hrs): Intake and Output Totals x24h 10/21/21 10/22/21 10/23/21 23:59 23:59 23:59 Intake Total 2515 1257 994 Output Total 750 1375 800 Balance 1765 -118 194 General: Other (Somnolent but readily arousable, Cachexic) HEENT: PERRLA, EOMI Neck: Supple, No JVD Neuro: Alert, Non Focal, Oriented Times 3 Cardiovascular: Regular rate, Normal S1, Normal S2 Respiratory: Other (left side/torso pain Improved aerationof lungs on auscultation) Abdomen: Normal bowel sounds, Soft, No tenderness Extremities: No clubbing, No edema, No tenderness/swelling Skin: No rashes, No breakdown, No significant lesion - Results Results: Laboratory Results WBC 13.0 x10^3/uL (4.8-10.8) H 10/23/21 04:30 RBC 4.80 10^6/uL (4.20-5.40) 10/23/21 04:30 Hgb 14.6 g/dL (12.0-16.0) 10/23/21 04:30 Hct 44.0 % (37.0-47.0) 10/23/21 04:30 MCV 91.7 fL (81.0-99.0) 10/23/21 04:30 MCH 30.4 pg (27.0-31.0) 10/23/21 04:30 MCHC 33.2 g/dL (32.0-36.0) 10/23/21 04:30 RDW 13.2 % (12.0-15.0) 10/23/21 04:30 Plt Count 337 10^3/uL (130-450) 10/23/21 04:30 MPV 9.6 fL (7.9-10.8) 10/23/21 04:30 Neut # (Auto) 11.2 10^3/uL (1.5-6.6) H 10/23/21 04:30 Lymph # (Auto) 1.2 10^3/uL (1.5-3.5) L 10/23/21 04:30 [place] # (Auto) 0.6 10^3/uL (0.0-1.0) 10/23/21 04:30 Eos # (Auto) 0.0 10^3/uL (0.0-0.7) 10/23/21 04:30 Baso # (Auto) 0.0 10^3/uL (0.0-0.1) 10/23/21 04:30 Absolute Nucleated RBC 0.00 x10^3/uL 10/23/21 04:30 Nucleated RBC % 0.0 /100WBC 10/23/21 04:30 PT 12.7 secs (9.9-12.6) H 10/22/21 05:53 INR 1.1 (0.8-1.2) 10/22/21 05:53 VBG pH 7.392 (7.31-7.41) 10/20/21 21:39 VBG pCO2 51.6 mmHg (41-51) H 10/20/21 21:39 VBG pO2 41.0 mmHg (25-47) 10/20/21 21:39 VBG HCO3 30.7 mmol/L (23-28) H 10/20/21 21:39 VBG Total CO2 32.3 mmol/L (24-29) H 10/20/21 21:39 VBG O2 Saturation 79.7 % (60-80) 10/20/21 21:39 VBG Base Excess 4.4 mmol/L (-2 - +2) H 10/20/21 21:39 Sodium 129 mmol/L (135-145) L 10/23/21 04:30 Potassium 4.4 mmol/L (3.5-5.0) 10/23/21 04:30 Chloride 96 mmol/L (101-111) L 10/23/21 04:30 Carbon Dioxide 27 mmol/L (21-32) 10/23/21 04:30 Anion Gap 6.0 (6-13) 10/23/21 04:30 BUN 9 mg/dL (6-20) 10/23/21 04:30 Creatinine 0.3 mg/dL (0.4-1.0) L 10/23/21 04:30 Estimated GFR (MDRD) 227 (>89) 10/23/21 04:30 Glucose 130 mg/dL (70-100) H 10/23/21 04:30 Calcium 9.4 mg/dL (8.5-10.3) 10/23/21 04:30 Phosphorus 3.9 mg/dL (2.5-4.6) 10/21/21 05:45 Magnesium 2.0 mg/dL (1.7-2.8) 10/21/21 05:45 Troponin I High Sens 3.6 ng/L (2.3-14.8) 10/20/21 21:39 Nasal Adenovirus (PCR) NOT DETECTED 10/20/21 22:58 Nasal B. parapertussis DNA (PCR) NOT DETECTED 10/20/21 22:58 Nasal Coronavir 229E PCR NOT DETECTED 10/20/21 22:58 Nasal Coronavir HKU1 PCR NOT DETECTED 10/20/21 22:58 Nasal Coronavir NL63 PCR NOT DETECTED 10/20/21 22:58 Nasal Coronavir OC43 PCR NOT DETECTED 10/20/21 22:58 Nasal Enterovir/Rhinovir PCR NOT DETECTED 10/20/21 22:58 Nasal Influenza B PCR NOT DETECTED 10/20/21 22:58 Nasal Influenza A PCR NOT DETECTED 10/20/21 22:58 Nasal Parainfluen 1 PCR NOT DETECTED 10/20/21 22:58 Nasal Parainfluen 2 PCR NOT DETECTED 10/20/21 22:58 Nasal Parainfluen 3 PCR NOT DETECTED 10/20/21 22:58 Nasal Parainfluen 4 PCR NOT DETECTED 10/20/21 22:58 Nasal RSV (PCR) NOT DETECTED 06/29/22 22:58 Nasal B.pertussis DNA PCR NOT DETECTED 10/20/21 22:58 Nasal C.pneumoniae (PCR) NOT DETECTED 10/20/21 22:58 Raúl Human Metapneumo PCR NOT DETECTED 10/20/21 22:58 Nasal M.pneumoniae (PCR) NOT DETECTED 10/20/21 22:58 Nasal SARS-CoV-2 (PCR) NOT DETECTED 10/20/21 22:58 - Procedures Procedures: Procedures ENDOSC POLYPECTOMY OF LG INTEST (01/02/14) ABX Reporting Has patient been on IV antibiotics over the past 48 hours?: No
[2021-10-23] MEDS: BUDESONIDE 0.5 MG/2 ML NEB INH SCH ×2 (07:50→19:40)
[2021-10-23] MEDS: IPRATROPIUM/ALBUTEROL 3 ML NEB INH SCH ×4 (07:51→19:40)
[2021-10-23] MEDS: guaiFENesin 600 MG TABLET PO SCH ×2 (09:36→22:08)
[2021-10-23] MEDS: THIAMINE 100 MG TABLET PO SCH (09:36)
[2021-10-23] MEDS: CITALOPRAM HYDROBROMIDE 20 MG TABLET PO SCH (09:36)
[2021-10-23] MEDS: PRENATAL VITAMIN TABLET PO SCH (09:36)
[2021-10-23] MEDS: polyethylene glycoL 3350 17 GM PACKET PO SCH (09:39)
[2021-10-23] MEDS: ENOXAPARIN 40 MG/0.4 ML SYRINGE SUBQ SCH (09:39)
[2021-10-23] MEDS: KETOROLAC 15 MG/ML VIAL IVP PRN ×2 (10:12→20:11)
[2021-10-23] MEDS: NICOTINE 14 MG PATCH TOP PRN (10:12)
[2021-10-23] MEDS: SODIUM CHLORIDE FLUSH 0.9% 10 ML SYRINGE IVP SCH ×3 (11:52→22:08)
--- NOTE | 2021-10-23 12:01 | XRAY Report ---
PROCEDURE: Ribs w/PA Chest LT INDICATIONS: left side/ rib pain TECHNIQUE: 2 views of the left ribs were acquired, along with a single view chest. COMPARISON: None FINDINGS: Surgical changes and devices: None. Bones and chest wall: No fractures or dislocations. No suspicious bony lesions. Overlying soft tis sues appear unremarkable. The lungs are hyperexpanded Lungs and pleura: No pleural effusions or pneumothorax. Lungs appear clear. Mediastinum: Mediastinal contours appear normal. Heart size is normal. IMPRESSION: 1. No rib fracture identified. 2. No acute cardiopulmonary abnormality. 3. The lungs are hyperexpanded consistent with COPD. Reviewed by: Buddy Sosa on 10/23/2021 10:59 AM ANTONY Approved by: Buddy Sosa on 10/23/2021 10:59 AM ANTONY Station ID: [id number]
[2021-10-23] MEDS ORDERED: SENNA 8.6 MG TABLET PO SCH (14:07)
[2021-10-23] MEDS ORDERED: DOCUSATE SODIUM 250 MG CAPSULE PO SCH (14:07)
[2021-10-23] MEDS: SENNA 8.6 MG TABLET PO SCH (16:39)
[2021-10-23] MEDS: DOCUSATE SODIUM 250 MG CAPSULE PO SCH (16:39)
[2021-10-23] MEDS ORDERED: ONDANSETRON 4 MG/2 ML VIAL IVP PRN (20:36)
[2021-10-23] MEDS: MONTELUKAST 10 MG TABLET PO SCH (22:08)
[2021-10-23] MEDS ORDERED: diphenhydrAMINE 25 MG CAPSULE PO PRN (23:38)
[2021-10-24] MEDS: methylPREDNISolone SUCCINATE 40 MG/ML VIAL IVP SCH (05:42)
[2021-10-24] MEDS: IPRATROPIUM/ALBUTEROL 3 ML NEB INH SCH ×2 (07:21→11:08)
[2021-10-24] MEDS: BUDESONIDE 0.5 MG/2 ML NEB INH SCH (07:21)
[2021-10-24 07:54] LABS: BASOPHILS % (AUTO) 0.2 %; HCT - HEMATOCRIT 44.8 % (37.0-47.0); HGB - HEMOGLOBIN 15.3 g/dL (12.0-16.0); LYMPHOCYTES # (AUTO) 0.5 10^3/uL (1.5-3.5); MEAN CORPUSCULAR HEMOGLOBIN 30.9 pg (27.0-31.0); MEAN CORPUSCULAR HGB CONC 34.2 g/dL (32.0-36.0); MEAN CORPUSCULAR VOLUME 90.5 fL (81.0-99.0); MEAN PLATELET VOLUME 9.2 fL (7.9-10.8); MONOCYTES # (AUTO) 0.6 10^3/uL (0.0-1.0); MONOCYTES % (AUTO) 4.4 %; NEUTROPHILS % (AUTO) 91.1 %; PLT - PLATELET COUNT 293 10^3/uL (130-450); RED BLOOD COUNT 4.95 10^6/uL (4.20-5.40); RED CELL DISTRIBUTION WIDTH 13.2 % (12.0-15.0); WHITE BLOOD COUNT 13.2 x10^3/uL (4.8-10.8)
[2021-10-24 08:03] LABS: CALCIUM 9.2 mg/dL (8.5-10.3); CREATININE 0.4 mg/dL (0.4-1.0); POTASSIUM 4.3 mmol/L (3.5-5.0)
[2021-10-24] MEDS: guaiFENesin 600 MG TABLET PO SCH (08:04)
[2021-10-24] MEDS: polyethylene glycoL 3350 17 GM PACKET PO SCH (08:04)
[2021-10-24] MEDS: DOCUSATE SODIUM 250 MG CAPSULE PO SCH (08:05)
[2021-10-24] MEDS: CITALOPRAM HYDROBROMIDE 20 MG TABLET PO SCH (08:05)
[2021-10-24] MEDS: PRENATAL VITAMIN TABLET PO SCH (08:05)
[2021-10-24] MEDS: SENNA 8.6 MG TABLET PO SCH (08:05)
[2021-10-24] MEDS: THIAMINE 100 MG TABLET PO SCH (08:05)
[2021-10-24] MEDS: SODIUM CHLORIDE FLUSH 0.9% 10 ML SYRINGE IVP SCH (08:05)
[2021-10-24] MEDS: ENOXAPARIN 40 MG/0.4 ML SYRINGE SUBQ SCH (08:06)
[2021-10-24] MEDS ORDERED: LORazepam 0.5 MG TABLET PO STA (09:09)
--- NOTE | 2021-10-24 11:37 | DISCHARGE SUMMARY ---
Discharge Summary Admit Date: 10/21/21 Discharge Date: 10/24/21 Discharging Provider: Sj Green Condition at Discharge: Stable Discharge Disposition: 01 Home, Self Care - DIAGNOSES Admission Diagnoses: Acute respiratory failure with hypoxia COPD exacerbation Tobacco use Abnormal EKG Renal azotemia Cachexia Discharge Diagnoses with Status of Each Condition: Acute respiratory failure with hypoxia: Resolved. COPD exacerbation: Improved/ Resolved Tobacco use: Chronic. Abnormal EKG: Stable Renal azotemia: Resolved Cachexia Chronic. Likely 2/2 COPD. - HPI History of Present Illness: This is a 60-year-old white female, current smoker, with COPD who is not on home oxygen. She presented to the ED with several days of shortness of breath. Today her shortness of breath had worsened and therefore she presented to the ER where she was found to have wheezing and O2 saturation of 87% on room air. She has received p.o. Decadron, albuterol and DuoNeb inhalers and continues to feel short of breath, is tachypneic and is wheezing. Her Covid test is neg. The ED provider reached out to the Hospitalist team for having her admitted for a COPD exacerbation with hypoxia. - HOSPITAL COURSE Hospital Course: Patient was admitted on 10/21/21 with shortness of breath. She is a current smoker with COPD and not on home oxygen. In the emergency room she was noted to have an oxygen saturation of 87% on room air. She was diagnosed with COPD exacerbation and started on treatment. Over the cause of 3 days stay high oxygen saturation improved to 97% on room air with a respiratory rate of 20. She was treated with Solu-Medrol 40 mg IV 3 times daily, montelukast, DuoNeb. Her home pulmonary regimen was resumed upon discharge. Prescriptions were sent to [facility] in [place]. She was also Prescribed a prednisone taper. She was also very depressed and anxious due to events going on in her personal l cherry. She was started on Celexa and treated with Ativan as needed. She is being discharged in stable condition. She may follow-up with her primary care physician as needed. - ALLERGIES Allergies/Adverse Reactions: Allergies Allergy/AdvReac Type Severity Reaction Status Date / Time promethazine HCl * AdvReac Hallucinati Verified 10/20/21 21:02 [From Phenergan] ons - MEDICATIONS Home Medications: Ambulatory Orders Medication Instructions Recorded Confirmed Albuterol Sulfate [Proair Hfa 1 - 2 puffs INH Q4H PRN #1 inhaler 10/24/21 Inhaler] Citalopram Hydrobromide [Celexa] 20 mg PO DAILY 30 Days #30 tablet 10/24/21 Fluticasone Propion/Salmeterol 1 each IH BID #1 packet 10/24/21 [Wixela 500-50 Inhub] LORazepam [Ativan] 0.5 mg PO Q8H PRN #15 tablet 10/24/21 Tiotropium [place] [Spiriva 2.5 mcg IH DAILY #1 inhaler 10/24/21 Respimat] predniSONE [Deltasone] 10 mg PO DAILY #12 tablet 10/24/21 - PHYSICAL EXAM AT DISCHARGE General Appearance: positive: Alert Eyes Bilateral: positive: PERRL, EOMI ENT: positive: No signs of dehydration Neck: positive: No JVD, Trachea midline Respiratory: positive: Chest non-tender, No respiratory distress, Breath sounds nml. negative: Wheezes Cardiovascular: positive: Regular rate & rhythm, No murmur Abdomen: positive: Non-tender, Nml bowel sounds, No distention. negative: Guarding, Rebound Back: positive: Nml inspection Skin: positive: Color nml, No rash, Warm, Dry Extremities: positive: Non-tender, Full ROM, Nml appearance, No pedal edema Neurologic/Psychiatric: positive: Oriented x3, Mood/affect nml - LABS Result Diagrams: 10/24/21 07:49 10/24/21 07:49 - TIME SPENT Time Spent in Discharge (Minutes): 20
--- NOTE | 2021-10-24 11:40 | Discharge Plan ---
Discharge Plan Problem Reviewed?: Yes Disposition: Home, Self Care Condition: Stable Prescriptions: LORazepam [Ativan] 0.5 mg PO Q8H PRN #15 tablet PRN Reason: Anxiety Citalopram Hydrobromide [Celexa] 20 mg PO DAILY 30 Days #30 tablet predniSONE [Deltasone] 10 mg PO DAILY #12 tablet Albuterol Sulfate [Proair Hfa Inhaler] 1 - 2 puffs INH Q4H PRN #1 inhaler PRN Reason: Shortness Of Air/Wheezing Tiotropium [place] [Spiriva Respimat] 2.5 mcg IH DAILY #1 inhaler Fluticasone Propion/Salmeterol [Wixela 500-50 Inhub] 1 each IH BID #1 packet Diet: Regular Activity Restrictions: Activity as Tolerated Health Concerns: Patient was admitted on 10/21/21 with shortness of breath. She is a current smoker with COPD and not on home oxygen. In the emergency room she was noted to have an oxygen saturation of 87% on room air. She was diagnosed with COPD exacerbation and started on treatment. Over the cause of 3 days stay high oxygen saturation improved to 97% on room air with a respiratory rate of 20. She was treated with Solu-Medrol 40 mg IV 3 times daily, montelukast, DuoNeb. Her home pulmonary regimen was resumed upon discharge. Prescriptions were sent to [facility] in [place]. She was also Prescribed a prednisone taper. She was also very depressed and anxious due to events going on in her personal life. She was started on Celexa and treated with Ativan as needed. She is being discharged in stable condition. She may follow-up with her primary care physician as needed. No Smoking: If you smoke, Please STOP! Call for help. Follow-up with: Provider,Other [Primary Care Provider] -
[2021-10-24 12:13] VITALS: BP 123/78
== END 2021-10-24 13:46 | disposition home or self-care (01) | DRG 189 ==
LOC: ED 20:53 → MS2 10-21 04:33
PROVIDERS: ADMIT Internal Medicine; ATTEND Internal Medicine
DX: J96.01 Acute respiratory failure with hypoxia (principal); F17.200 Nicotine dependence, unspecified, uncomplicated; Z20.822 Contact with and (suspected) exposure to COVID-19; J44.1 Chronic obstructive pulmonary disease with (acute) exacerbation; R64 Cachexia; Z68.1 Body mass index [BMI] 19.9 or less, adult; F17.210 Nicotine dependence, cigarettes, uncomplicated; F32.A Depression, unspecified; F41.9 Anxiety disorder, unspecified; R79.89 Other specified abnormal findings of blood chemistry; R94.31 Abnormal electrocardiogram [ECG] [EKG]; Z79.899 Other long term (current) drug therapy
CPT/HCPCS: 36415; 71045; 71101; 80048; 82803; 83735; 84100; 84484; 85025; 85610; 87633; 93005; 94640; 99283; 99285; A9270; J1650; J7626; J8499